=== PATIENT | male | born 1975 | race Caucasian/White ===

== ENCOUNTER 2017-10-02 13:14 | Emergency (ER) | payer SELFPAY ==
[~2017-10-02] VITALS: Ht 172.7 cm; Wt 97.7 kg
[2017-10-02 13:18] VITALS: Ht 172.7 cm; Wt 97.7 kg
[2017-10-02 14:33] VITALS: BP 122/88
== END 2017-10-02 14:33 | disposition home or self-care (01) ==
LOC: ED 13:14
DX: R07.89 Other chest pain (principal); R06.02 Shortness of breath